=== PATIENT | female | born 1945 | race Caucasian/White ===

== ENCOUNTER → 2018-12-08 16:06 | Outpatient (CLI) | payer OTHER, SELFPAY ==
--- NOTE | 2018-12-08 16:11 | DI.RAD.S_ITS ---
PROCEDURE: XR CERVICAL SPINE 4V OR 5V INDICATIONS: Neck pain TECHNIQUE: 5 views of the cervical spine acquired. COMPARISON: None. FINDINGS: Bones: No fractures or dislocations to the C7 level. Oblique images demonstrate no bony foraminal stenoses. There is degenerative disc changes, moderate at the C3-C4 and C6-C7. Bilateral facet arthropathy is present, most pronounced at C5-C6 on the left and C2-C3 on the right. On oblique views, there is no definitive bony foraminal stenosis. Soft tissues: No prevertebral soft tissue swelling. IMPRESSION: [id number] degenerative disc and facet disease. Dictated by: April Nguyễn M.D. on 12/08/2018 at 17:49 Approved by: April Nguyễn M.D. on 12/08/2018 at 17:52
--- NOTE | 2018-12-08 16:11 | DI.RAD.S_ITS ---
PROCEDURE: XR LUMBAR SPINE MIN 4V INDICATIONS: Low back pain TECHNIQUE: 5 views of the lumbar spine were acquired. COMPARISON: None. FINDINGS: Bones: 5 [id number] vertebrae are present. There is grade 1 anterolisthesis at L3-L4 and L4-L5. No vertebral body compression fractures. No suspicious bony lesions. There is degenerative disc disease, moderate at L2-L3 and L3-L4, mild L4-L5 and L5-S1. There is severe facet arthropathy at L3-L4, L4-L5 and L5-S1, and moderate facet arthropathy at L1-L2 and L2-L3. There is fusion of the sacroiliac joints bilaterally. Soft tissues: Overlying bowel gas pattern is normal. No suspicious soft tissue calcifications. Oblique images: No pars defects. IMPRESSION: 1. Degenerative disc and facet disease in lumbar spine as described. 2. Fusion of SI joints bilaterally. Dictated by: April Nguyễn M.D. on 12/08/2018 at 17:52 Approved by: April Nguyễn M.D. on 12/08/2018 at 17:54
== END ==
PROVIDERS: PCP Internal Medicine; Visit Provider Physical Medicine & Rehabilitation
DX: M54.2 Cervicalgia (principal); M54.5 Low back pain; M47.812 Spondylosis without myelopathy or radiculopathy, cervical region; M47.816 Spondylosis without myelopathy or radiculopathy, lumbar region; M51.36 Other intervertebral disc degeneration, lumbar region; M51.37 Other intervertebral disc degeneration, lumbosacral region; M43.28 Fusion of spine, sacral and sacrococcygeal region
CPT/HCPCS: 72050; 72110

== ENCOUNTER → 2019-12-12 11:26 | Outpatient (CLI) | payer OTHER, SELFPAY ==
[2019-12-13 01:57] LABS: COVID19 Sendout Not Detected (Not Detect)
== END ==
PROVIDERS: PCP Internal Medicine; Visit Provider Physician Assistant
DX: Z01.812 Encounter for preprocedural laboratory examination (principal)
CPT/HCPCS: 87635

== ENCOUNTER 2019-12-15 12:10 | Outpatient (CLI) | payer OTHER, SELFPAY ==
[2019-12-15] VITALS (8 sets, daily range): BP systolic 129–156; BP diastolic 48–103; PULSE 49–64; RESP 14–16; TEMP 36.1; O2SAT 98–100
--- NOTE | 2019-12-15 12:11 | DI.RAD.S_ITS ---
PROCEDURE: PAIN L/S TRANSFORAMINAL INJECT INDICATIONS: Left L2-3 transforaminal AYESHA FINDINGS: Fluoroscopic spot filming was performed to verify placement of spinal needles at the L2-L3 level(s), as labeled on the films. Appropriate location(s) of the needle tip(s) was confirmed by injection of iodinated contrast. Dictated by: Fernando Shabazz M.D. on 12/15/2019 at 14:15 Approved by: Fernando Shabazz M.D. on 12/15/2019 at 14:17
[2019-12-15] MEDS: MIDAZOLAM 5 MG/5 ML VIAL 2 MG IV (12:58)
[2019-12-15] MEDS: DEXAMETHASONE 10 MG/ML VIAL 20 MG INJ (13:00)
[2019-12-15] MEDS: BUPIVACAINE 0.25% (PF) VIAL 2 ML INJ (13:00)
[2019-12-15] MEDS: IOPAMIDOL 15 ML VIAL 3 ML INJ (13:00)
[2019-12-15] MEDS: BETAMETHASONE 30 MG/5 ML MDV 6 MG INJ (13:00)
--- NOTE | 2019-12-15 13:07 | P.PCN_ITS ---
Procedures Date/Time Date of procedure: 12/15/19 Time of procedure: 13:08 General Procedure description: Operative Note PREOP DIAGNOSIS 1. FORAMINAL STENOSIS WITH LE SYMPTOMS, POST OP DIAGNOSIS 1. FORAMINAL STENOSIS WITH LE SYMPTOMS, PROCEDURES 1. FLUOROSCOPICALLY GUIDED CONTRAST CONTROLLED TRANSFORAMINAL EPIDURAL STEROID INJECTION - LEFT L2/3 TFESI SURGEON: Tejas Matthews, DO INDICATIONS Mariela is referred by for treatment of Foraminal Stenosis with left LE Symptoms FINDINGS Foraminal Nerve Root Compression secondary to disc disease and facet hypertrophy DESCRIPTION OF PROCEDURE Following review of allergy and review of potential side effects and complications, including, but not necessarily limited to, infection, allergic reaction, local tissue breakdown, stroke, temporary or permanent nerve injury, paralysis, and possible , the patient indicated that the patient understood and agreed to proceed. An informed consent document was signed by the patient, witnessed by a nurse, and placed in the patient's chart. Additionally, other treatment options including medications, modalities, and physical therapy were reviewed with the patient. After review of previous anaesthesic history and IV conscious sedation the patient was deemed safe to proceed with todays procedure with IV conscious sedation as ASA class II designation. Safety time-out was performed to confirm patient ID, procedure to be performed and site of procedure. IV sedation was accomplished with a combination of 2mg of Versed was administered by the RN after DO order, titrated to patient comfort during the course of the procedure while the patient remained responsive to all verbal commands In the prone position following sterile prep and drape of the lumbar region, the left L2/3 posterior neuroforamen was identified fluoroscopically. The skin was anesthetized via a 25-gauge 1.5-inch needle with 1% lidocaine solution. At this point, a 25-gauge 3.5-inch spinal needle was atraumatically introduced and advanced under fluoroscopic guidance through the posterior left L2/3 neuroforamen to approximately the anterior aspect of the canal. Depth was confirmed on lateral view. Following negative aspiration, injection of smith roximately 1.5 cc of Isovue 200 under live fluoroscopy in the AP view confirmed excellent flow along the nerve root, into the epidural space without vascular or intrathecal uptake observed Radiological data, including multiple fluoroscopic views of the lumbosacral spine, reveal a spinal needle at the left L2/3 posterior neuroforamen. Subsequent views show flow of contrast material flowing superiorly and inferiorly along the nerve root confirming epidural flow. Subsequently, a test dose of 1.5 cc of 1% lidocaine solution was administered and patient was observed for two minutes for signs or symptoms of complications, including abdominal pain, shortness of breath, bilateral upper or lower extremity weakness, nausea and vomiting, prior to steroid injection. At this point, a total of 2cc or 20mg of dexamethasone and 6mg of betamethasone was injected without incident. The patient tolerated the procedure well without signs or symptoms of complications prior to transfer to the recovery area continued monitoring without incident. The patient was then transferred to the recovery area where they were observed for an appropriate time after the injection. The patient reported a VAS score of 7 prior to the procedure and a post-procedure VAS of 0. Total Fluoroscopy Time: 7 seconds Total Conscious Sedation Time: 24min POST OP INSTRUCTIONS The patient was provided a Pain Log to continue to record their response to the target-specific procedure prior to follow-up visit with their referring physician. Additionally, specific post-injection care instructions and a contact number to our office were provided if concerns arise regarding possible complications associated with the procedure are suspected. Tejas Matthews DO Complications: none Complications: none
--- NOTE | 2019-12-15 15:19 | PC.NURSE ---
Pt tolerated procedure well, 2PA on transfer from table to . Pt transported to pre proc room by in stable condition. Monitoring resumed by MAL Carvajal
== END 2019-12-15 13:35 | disposition home or self-care (01) ==
PROVIDERS: PCP Internal Medicine; Referring Provider Physical Medicine & Rehabilitation; Visit Provider Physical Medicine & Rehabilitation
DX: M48.061 Spinal stenosis, lumbar region without neurogenic claudication (principal); M51.16 Intervertebral disc disorders with radiculopathy, lumbar region
CPT/HCPCS: 64483; 99152; J0702; J1100; J2250

== ENCOUNTER → 2020-01-18 15:23 | Outpatient (CLI) | payer OTHER, SELFPAY ==
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
== END ==
PROVIDERS: PCP Internal Medicine; Referring Provider Physical Medicine & Rehabilitation; Visit Provider Physical Medicine & Rehabilitation
DX: M51.34 Other intervertebral disc degeneration, thoracic region (principal); M47.814 Spondylosis without myelopathy or radiculopathy, thoracic region; M41.52 Other secondary scoliosis, cervical region
CPT/HCPCS: 72072

== ENCOUNTER → 2020-03-01 17:36 | Outpatient (CLI) | payer OTHER, SELFPAY ==
--- NOTE | 2020-03-01 17:40 | DI.MRI.S_ITS ---
PROCEDURE: MR THORACIC SPINE WO CON INDICATIONS: other spondylosis with radiculopathy, thoracic region TECHNIQUE: Noncontrast sagittal T1 spine echo and T2 fast spin echo, sagittal STIR, axial T1 and T2 fast spin echo through the thoracic spine. COMPARISON: None. FINDINGS: Image quality: Excellent. Alignment and Curvature: There is trace T12-L1 retrolisthesis.. Bone Marrow: Benign, intraosseous hemangiomas noted in the C7, T7 and T9 vertebral bodies. No acute vertebral body compression fractures. Physiologic wedging of the T6, T7, T8 and T9 vertebral bodies. Spinal Cord: Visualized spinal cord is normal in size and signal. Paraspinous Soft Tissues: No paravertebral masses. Miscellaneous: Mild degenerative disc changes noted throughout the thoracic spine. There is mild, diffuse T12-L1 disc bulge. Mild bilateral T12-L1 facet arthropathy. Mild T12-L1 central canal narrowing. Moderate right and moderate to severe left T12-L1 neural foraminal narrowing with slight compression of the exiting left T12 nerve root. IMPRESSION: 1. Mild multilevel degenerative disease. 2. Mild T12-L1 central canal narrowing. 3. Moderate right and moderate to severe left at T12-L1 neural foraminal narrowing. 4. Slight compression of the exiting left T12 nerve root secondary to left T12-L1 neural foraminal narrowing. Please correlate with clinical data. Dictated by: Edwige Gonsalez MD, PhD on 03/02/2020 at 10:32 Approved by: Edwige Gonsalez MD, PhD on 03/02/2020 at 10:49
== END ==
PROVIDERS: PCP Internal Medicine; Referring Provider Physical Medicine & Rehabilitation; Visit Provider Physical Medicine & Rehabilitation
DX: M47.24 Other spondylosis with radiculopathy, thoracic region (principal); M51.14 Intervertebral disc disorders with radiculopathy, thoracic region; M48.05 Spinal stenosis, thoracolumbar region; M43.28 Fusion of spine, sacral and sacrococcygeal region
CPT/HCPCS: 72146

== ENCOUNTER → 2020-03-12 11:10 | Outpatient (CLI) | payer OTHER, SELFPAY ==
[2020-03-14 17:23] LABS: COVID19 Sendout Not Detected (Not Detect)
== END ==
PROVIDERS: PCP Internal Medicine; Visit Provider Nurse Practitioner
DX: Z11.59 Encounter for screening for other viral diseases (principal)
CPT/HCPCS: 87635

== ENCOUNTER → 2020-03-15 10:47 | Outpatient (CLI) | payer OTHER, SELFPAY ==
[2020-03-15] VITALS (9 sets, daily range): BP systolic 149–193; BP diastolic 52–83; PULSE 56–64; RESP 11–24; TEMP 36.2; O2SAT 100
--- NOTE | 2020-03-15 10:49 | DI.RAD.S_ITS ---
PROCEDURE: PAIN C/T INTERLAMINAR INJECT INDICATIONS: SPONDYLOSIS COMPARISON: None. FINDINGS: Fluoroscopic spot filming was performed to verify placement of spinal needles at the T9-T10 midline level(s), as labeled on the films. Appropriate location(s) of the needle tip(s) was confirmed by injection of iodinated contrast. IMPRESSION: Successful needle tip localization for translaminar epidural steroid injection at the T9-T10 level. Dictated by: Benjamin Irving M.D. on 03/15/2020 at 13:35 Approved by: Benjamin Irving M.D. on 03/15/2020 at 13:35
[2020-03-15] MEDS: MIDAZOLAM 5 MG/5 ML VIAL IV (12:03)
[2020-03-15] MEDS: BUPIVACAINE 0.25% (PF) VIAL 2 ML INJ (12:09)
[2020-03-15] MEDS: DEXAMETHASONE 10 MG/ML VIAL 20 MG INJ (12:11)
[2020-03-15] MEDS: IOPAMIDOL 15 ML VIAL 3 ML INJ (12:11)
--- NOTE | 2020-03-15 12:19 | PM.PROC.IR.1 ---
Date/Time/Diagnoses Date of procedure: 03/15/20 Time of procedure: 12:19 Pre-procedure diagnosis: Thoracic stenosis with HNP Post-procedure diagnosis: same Procedure Notes Procedure: Fluoroscopic guided, contrast controlled T9/10 translaminar epidural steroid injection with conscious sedation. Indications: Mariela is referred by for treatment of thoracic DDD/DJD with radiculopathy Physician: Tejas Matthews Total Fluoroscopy time (seconds): 16 Total sedation minutes: 13 Complications: none Procedure in detail & Post-procedure care: DESCRIPTION OF PROCEDURE Fluoroscopic guided, contrast controlled T9/10 translaminar epidural steroid injection with conscious sedation. Following review of allergy review potential side effects and complications, including, but not necessarily limited to, infection, allergic reaction, local tissue breakdown, temporary as well as permanent nerve injury, stroke, paralysis and possible , the patient indicated that they understood and agreed to proceed. An informed consent document was signed by the patient, witnessed by the nurse, and placed in the patient's chart. Additionally other treatment options including modalities, medications and physical therapy were reviewed with the patient. After review of previous anaesthesic history and IV conscious sedation the patient was deemed safe to proceed with today's procedure with IV conscious sedation as ASA class II designation. Safety time-out was performed to confirm patient ID, procedure to be performed and site of procedure. IV sedation was accomplished with a combination of 3mg of Versed administered by the RN after DO order, titrated to patient comfort during the course of the procedure while the patient remained responsive to all verbal commands In the prone position, following sterile prep and drape of the thoracic region the T9/10 translaminar space was identified fluoroscopically. The skin was anesthetized via 25 gauge 1.5inch needle with 1% lidocaine solution. At this point a 22gauge epidural needle was atraumatically introduced and advanced under fluoroscopic guidance into the region of the T9/10 translaminar space depth was confirmed on lateral view. Radiographic data, including multiple fluoroscopic views of the thoracic spine, reveals spinal needle at the T9/10 translaminar space. Lateral views then showed the placement of the needle in the epidural space. Subsequent view show contrast material flowing superiorly and inferiorly in the epidural space. No vascular or intrathecal uptake is observed. At this point using loss of resistance technique with saline and the epidural space was entered. This was confirmed followed negative aspiration and injection of approximately 1.5cc of Isovue 200 showed excellent epidural flow without vascular or intrathecal uptake. At this point, 1 cc of 1% lidocaine solution was admitted as a test dose and the patient was observed for an appropriate period of time without signs or symptoms of complications, including abdominal pain, shortness of breath, bilateral upper and lower extremity weakness, nausea and vomiting, prior to steroid injection. Subsequently, 3cc or 30mg of dexamethasone was then injected without incident. The patient tolerated the procedure well without signs of complications and subsequently was transferred to the recovery room for further monitoring. The patient was then transferred to the recovery area with their observed for an appropriate time after the injection. Patient reported a VAS score of 7 prior to the procedure and post-procedure VAS of 2.
== END ==
PROVIDERS: PCP Internal Medicine; Referring Provider Internal Medicine; Visit Provider Physical Medicine & Rehabilitation
DX: M48.04 Spinal stenosis, thoracic region (principal); M51.14 Intervertebral disc disorders with radiculopathy, thoracic region; M47.24 Other spondylosis with radiculopathy, thoracic region
CPT/HCPCS: 62321; 99152; J1100; J2250; J3010

== ENCOUNTER → 2020-07-17 13:00 | Outpatient (CLI) | payer OTHER, SELFPAY ==
[2020-07-17 13:50] LABS: COVID19 -Nasal RAPID Negative (Negative)
== END ==
PROVIDERS: PCP Internal Medicine; Referring Provider Physical Medicine & Rehabilitation; Visit Provider Physical Medicine & Rehabilitation
DX: Z20.822 Contact with and (suspected) exposure to COVID-19 (principal)
CPT/HCPCS: 87635; C9803

== ENCOUNTER 2020-07-19 09:33 | Outpatient (CLI) | payer OTHER, SELFPAY ==
[2020-07-19] VITALS (10 sets, daily range): BP systolic 121–163; BP diastolic 69–79; PULSE 61–71; RESP 12–27; TEMP 36.6; O2SAT 99–100
--- NOTE | 2020-07-19 09:37 | DI.RAD.S_ITS ---
PROCEDURE: PAIN C/T FACET INJ/BLK 1ST L INDICATIONS: SPINAL STENOSIS COMPARISON: [facility], , PAIN C/T INTERLAMINAR INJECT, 03/15/2020, 12:07. FINDINGS: Fluoroscopic spot filming was performed to verify placement of spinal needles on the right at the C3-C4, C4-C5 and C5-C6 level(s), as labeled on the films. Appropriate location(s) of the needle tip(s) was confirmed by injection of iodinated contrast. IMPRESSION: Intraprocedural examination within normal limits. Dictated by: iRo Ojeda M.D. on 07/19/2020 at 12:19 Approved by: Rio Ojeda M.D. on 07/19/2020 at 12:20
[2020-07-19] MEDS: MIDAZOLAM 5 MG/5 ML VIAL IV (10:13)
[2020-07-19] MEDS: fentaNYL 100 MCG/2 ML INJ 50 MCG IV (10:15)
[2020-07-19] MEDS: DEXAMETHASONE 10 MG/ML VIAL 30 MG INJ (10:20)
[2020-07-19] MEDS: IOPAMIDOL 15 ML VIAL 3 ML INJ (10:20)
[2020-07-19] MEDS: BUPIVACAINE 0.5% (PF) VIAL 2 ML INJ (10:26)
--- NOTE | 2020-07-19 10:29 | P.PCN_ITS ---
Date/Time/Diagnoses Date of procedure: 07/19/20 Time of procedure: 10:29 Pre-procedure diagnosis: 1. FACET ARTHROPATHY 2. AXIAL NECK PAIN Post-procedure diagnosis: same Procedure Notes Procedure: 1. FLUOROSCOPICALLY GUIDED, CONTRAST-CONTROLLED LEFT C4/5, C5/6 FACET JOINT INJECTIONS WITH CONSCIOUS SEDATION. Indications: Mariela is referred by Dr. Pedraza for treatment of Axial Neck Pain Physician: Tejas Matthews Total Fluoroscopy time (seconds): 7 Total sedation minutes: 12 Complications: none Procedure in detail & Post-procedure care: DESCRIPTION OF PROCEDURE Fluoroscopically guided, contrast-controlled right C3/4, C4/5, C5/6 facet joint injections with conscious sedation. Following review of allergy and review of potential side effects and complications, including, but not necessarily limited to, infection, allergic reaction, local tissue breakdown, stroke, temporary or permanent nerve injury and paralysis, the patient indicated that the patient understood and agreed to proceed. An informed consent document was signed by the patient, witnessed by a nurse, and placed in the patient's chart. Additionally, other treatment options including medications, modalities, and physical therapy were reviewed with the patient. After review of previous anaesthesic history and IV conscious sedation the patient was deemed safe to proceed with today?s procedure with IV conscious sedation as ASA class II designation. Safety time-out was performed to confirm patient ID, procedure to be performed and site of procedure. IV sedation was accomplished with a combination of 3mg of Versed and 50mcg of Fentanyl was administered by the RN after DO order, titrated to patient comfort during the course of the procedure while the patient remained responsive to all verbal commands In the prone position, following sterile prep and drape of the cervical spine region, the posterior aspect of the right C3/4, C4/5, C5/6 facet joints were identified fluoroscopically. The skin was anesthetized via a 25-gauge 1.5-inch needle with 1% lidocaine solution into the corresponding facet joints. At this point, a 25-gauge 2.5-inch spinal needle was atraumatically introduced and advanced under fluoroscopic guidance into the corresponding facet joints. Following negative aspiration, injections of approximately 0.2-cc of Isovue 200 confirmed interarticular placement without vascular uptake. At this point, a total of 1cc including 0.5 cc or 5mg of dexamethasone combined with 0.5cc of 1% lidocaine solution was injected without complication into each of the corresponding facet joints. The patient tolerated the procedure well without signs or symptoms of complications prior to transfer to the recovery area continued monitoring without incident. The patient was then transferred to the recovery area where they were observed for an appropriate period of time after the injection. The patient reported a VAS score of 7 prior to the procedure and a post- procedure VAS of 0. POST OP INSTRUCTIONS They were provided a Pain Log to continue to record their response to the target-specific procedure prior to their follow-up visit with their referring physician. Additionally, specific post-injection care instructions and a contact number to our office were provided if concerns arise regarding possible complications associated with the procedure are suspected.
== END 2020-07-19 11:00 | disposition home or self-care (01) ==
LOC: RAD 09:37
PROVIDERS: Referring Provider Physical Medicine & Rehabilitation; Visit Provider Physical Medicine & Rehabilitation
DX: M47.812 Spondylosis without myelopathy or radiculopathy, cervical region (principal); M54.2 Cervicalgia
CPT/HCPCS: 64490; 64491; 64492; 99152; J1100; J2250; J3010

== ENCOUNTER → 2020-08-27 13:26 | Outpatient (CLI) | payer OTHER, SELFPAY ==
--- NOTE | 2020-08-27 13:28 | DI.RAD.S_ITS ---
PROCEDURE: XR CERVICAL SPINE 4V OR 5V INDICATIONS: NECK PAIN. TECHNIQUE: 5 views of the cervical spine acquired. COMPARISON: [facility], CR, XR CERVICAL SPINE 4V OR 5V, 12/08/2018, 16:26. FINDINGS: Bones: No fracture. Multilevel degenerative endplate sclerosis and spurring. Diffuse facet arthropathy. Trace retrolisthesis of C3 on C4 . Diffuse narrowing of the cervical disc spaces, [id number]. Overall, no interval change. No definite bony foraminal narrowing is seen bilaterally. Soft tissues: No prevertebral soft tissue swelling. IMPRESSION: Unchanged multilevel cervical spondylosis and facet arthropathy since 12/08/18. Dictated by: Fernando Shabazz M.D. on 08/27/2020 at 15:01 Approved by: Fernando Shabazz M.D. on 08/27/2020 at 15:03
== END ==
PROVIDERS: Referring Provider Physical Medicine & Rehabilitation; Visit Provider Physical Medicine & Rehabilitation
DX: M47.812 Spondylosis without myelopathy or radiculopathy, cervical region (principal); M41.52 Other secondary scoliosis, cervical region; M51.26 Other intervertebral disc displacement, lumbar region; M47.24 Other spondylosis with radiculopathy, thoracic region
CPT/HCPCS: 72050; 99213

== ENCOUNTER → 2021-08-06 10:58 | Outpatient (CLI) | payer OTHER, SELFPAY ==
[2021-08-06 13:47] LABS: COVID19 -Nasal RAPID Negative (Negative)
== END ==
PROVIDERS: Visit Provider Physical Medicine & Rehabilitation
DX: Z20.822 Contact with and (suspected) exposure to COVID-19 (principal)
CPT/HCPCS: 87635; C9803

== ENCOUNTER → 2021-08-27 13:53 | Outpatient (CLI) | payer OTHER, SELFPAY ==
[2021-08-27 15:05] LABS: COVID19 -Nasal RAPID Negative (Negative)
== END ==
PROVIDERS: Visit Provider Physical Medicine & Rehabilitation
DX: Z20.822 Contact with and (suspected) exposure to COVID-19 (principal)
CPT/HCPCS: 87635; C9803

== ENCOUNTER 2021-08-29 09:18 | Outpatient (CLI) | payer OTHER, SELFPAY ==
[2021-08-29] VITALS (12 sets, daily range): BP systolic 122–149; BP diastolic 59–70; PULSE 56–68; RESP 12–20; TEMP 37; O2SAT 97–100
--- NOTE | 2021-08-29 09:20 | DI.RAD.S_ITS ---
PROCEDURE: PAIN C/T INTERLAMINAR INJECT INDICATIONS: SPONDYLOSIS COMPARISON: [facility], RG, XR T-SPINE 2-3V, 06/25/2021, 10:50. FINDINGS: Fluoroscopic spot filming was performed to verify placement of spinal needles at the T9-T10 level(s), as labeled on the films. Appropriate location(s) of the needle tip(s) was confirmed by injection of iodinated contrast. IMPRESSION: Fluoroscopy for pain management. Dictated by: April Nguyễn M.D. on 08/29/2021 at 11:39 Approved by: April Nguyễn M.D. on 08/29/2021 at 11:40
[2021-08-29] MEDS: MIDAZOLAM 5 MG/5 ML VIAL IV ×2 (10:13→10:29)
[2021-08-29] MEDS: IOPAMIDOL 15 ML VIAL 3 ML INJ (10:17)
[2021-08-29] MEDS: DEXAMETHASONE 10 MG/ML VIAL 30 MG (10:18)
[2021-08-29] MEDS: BUPIVACAINE 0.25% (PF) VIAL 2 ML INJ (10:18)
--- NOTE | 2021-08-29 10:35 | PM.PROC.IR.1 ---
Date/Time/Diagnoses Date of procedure: 08/29/21 Time of procedure: 10:35 Pre-procedure diagnosis: Thoracic stenosis with HNP Post-procedure diagnosis: same Procedure Notes Procedure: Fluoroscopic guided, contrast controlled T9/10 translaminar epidural steroid injection with conscious sedation. Indications: Mariela is referred by Dr. Pedraza for treatment of thoracic DDD/DJD with radiculopathy Physician: Tejas Matthews Total Fluoroscopy time (seconds): 18 Total sedation minutes: 20 Complications: none Procedure in detail & Post-procedure care: DESCRIPTION OF PROCEDURE Fluoroscopic guided, contrast controlled T9/10 translaminar epidural steroid injection with conscious sedation. Following review of allergy review potential side effects and complications, including, but not necessarily limited to, infection, allergic reaction, local tissue breakdown, temporary as well as permanent nerve injury, stroke, paralysis and possible , the patient indicated that they understood and agreed to proceed. An informed consent document was signed by the patient, witnessed by the nurse, and placed in the patient's chart. Additionally other treatment options including modalities, medications and physical therapy were reviewed with the patient. After review of previous anaesthesic history and IV conscious sedation the patient was deemed safe to proceed with today's procedure with IV conscious sedation as ASA class II designation. Safety time-out was performed to confirm patient ID, procedure to be performed and site of procedure. IV sedation was accomplished with a combination of 3mg of Versed administered by the RN after DO order, titrated to patient comfort during the course of the procedure while the patient remained responsive to all verbal commands. In the prone position, following sterile prep and drape of the thoracic region the T9/10 translaminar space was identified fluoroscopically. The skin was anesthetized via 25 gauge 1.5inch needle with 1% lidocaine solution. At this point a 22gauge epidural needle was atraumatically introduced and advanced under fluoroscopic guidance into the region of the T9/10 translaminar space depth was confirmed on lateral view. Radiographic data, including multiple fluoroscopic views of the thoracic spine, reveals spinal needle at the T9/10 translaminar space. Lateral views then showed the placement of the needle in the epidural space. Subsequent view show contrast material flowing superiorly and inferiorly in the epidural space. No vascular or intrathecal uptake is observed. At this point using loss of resistance technique with saline and the epidural space was entered. This was confirmed followed negative aspiration and injection of approximately 1.5cc of Isovue 200 showed excellent epidural flow without vascular or intrathecal uptake. At this point, 1cc of 1% lidocaine solution was admitted as a test dose and the patient was observed for an appropriate period of time without signs or symptoms of complications, including abdominal pain, shortness of breath, bilateral upper and lower extremity weakness, nausea and vomiting, prior to steroid injection. Subsequently, 3cc or 30mg of dexamethasone was then injected without incident. The patient tolerated the procedure well without signs of complications and subsequently was transferred to the recovery room for further monitoring. The patient was then transferred to the recovery area with their observed for an appropriate time after the injection. Patient reported a VAS score of 7 prior to the procedure and post-procedure VAS of 2.
== END 2021-08-29 11:06 | disposition home or self-care (01) ==
PROVIDERS: PCP Internal Medicine; Referring Provider Physical Medicine & Rehabilitation; Visit Provider Physical Medicine & Rehabilitation
DX: M51.14 Intervertebral disc disorders with radiculopathy, thoracic region (principal); M48.04 Spinal stenosis, thoracic region
CPT/HCPCS: 62321; 99152; J1100; J2250; J3010

== ENCOUNTER → 2022-02-17 10:44 | Outpatient (CLI) | payer OTHER, SELFPAY ==
--- NOTE | 2022-02-17 10:48 | DI.RAD.S_ITS ---
PROCEDURE: XR KNEE LT 3V INDICATIONS: LEFT KNEE PAIN TECHNIQUE: 3 views of the knee were acquired. COMPARISON: None. FINDINGS: Bones: No fractures or dislocations. No suspicious bony lesions. Prior left knee arthroplasty. Hardware appears intact. No definite suspicious lucency adjacent to the hardware components. Soft tissues: No joint effusion. No suspicious soft tissue calcifications. IMPRESSION: No acute osseous abnormality. If symptoms persist, follow-up radiographs and/or CT may be helpful for further evaluation. Dictated by: Horacio Suarez M.D. on 02/17/2022 at 20:50 Approved by: Horacio Suarez M.D. on 02/17/2022 at 20:54
== END ==
PROVIDERS: PCP Internal Medicine; Referring Provider Physical Medicine & Rehabilitation; Visit Provider Physical Medicine & Rehabilitation
DX: M25.562 Pain in left knee (principal)
CPT/HCPCS: 73562